=== PATIENT | female | born 1990 | race Caucasian/White ===

== ENCOUNTER 2018-07-02 22:31 | Emergency (ER) | payer SELFPAY ==
[2018-07-03] MEDS ORDERED: Fluorescein Sodium TOPICAL* 1 MG TEST STRIP OPHTHALMIC ONE (01:13)
[2018-07-03] MEDS ORDERED: Proparacaine 0.5% OPHTH.SOL* 15 ML BTL LEFT EYE ONE (01:13)
--- NOTE | 2018-07-03 01:55 | RAD ---
EXAM: CT Maxillofacial Without Intravenous Contrast EXAM DATE/TIME: 07/03/2018 1:25 AM CLINICAL HISTORY: 28 years old, female; Injury or trauma; Injury history: Blackened left eye approx 1 month or more ago; Late effect from previous injury; Blunt trauma (contusions or hematomas); Orbit/periorbital; Injury date: Unknown TECHNIQUE: Axial computed tomography images of the face without intravenous contrast. All CT scans at this facility use at least one of these dose optimization techniques: automated exposure control; mA and/or kV adjustment per patient size (includes targeted exams where dose is matched to clinical indication); or iterative reconstruction. Coronal and sagittal reformatted images were created and reviewed. COMPARISON: No relevant prior studies available. FINDINGS: Bones/joints: No acute fracture. Soft tissues: No significant facial soft tissue swelling. Orbits: No orbital hemorrhage. Sinuses: Normal. No air-fluid levels. IMPRESSION: No acute fracture. To contact [facility] with a general question: Operations Center - [phone] For direct physician to physician contact: Physician Hotline - [phone] [facility] ([facility] Facility ID #[id number])
--- NOTE | 2018-07-03 01:58 | ED ---
Throat Pain/Nasal Congestion - HPI Summary HPI Summary: Patient with history of "black eye" 3 months ago complains of persistent pain, ecchymosis below left eye with heat and itching in same area starting tonight. Patient states persistent mild ecchymosis, swelling, tenderness since event 3 months ago. Patient seen by primary care last week, recommended that she see a maxillofacial surgeon. Patient states no imaging has been done, no course of antibiotics. Denies any vision change or ocular symptoms, fever, cough, sore throat, CP, CARMICHAEL, CP, SOB, N/V/V abdominal pain, change in urine, change in BM. Medical history is none. - History of Current Complaint Chief Complaint: EDEyeProblem Time Seen by Provider: 07/03/18 01:03 Hx Obtained From: Patient Onset/Duration: Gradual Onset Severity: Moderate Associated Signs And Symptoms: Positive: Negative Cough: None - Allergies/Home Medications Allergies/Adverse Reactions: Allergies Allergy/AdvReac Type Severity Reaction Status Date / Time acetaminophen [From Percocet] Allergy Itching Verified 07/03/18 01:57 MS Acetaminophen Allergy Itching Verified 06/01/15 19:44 [From Percocet] MS Oxycodone [From Percocet] Allergy Itching Verified 06/01/15 19:44 oxycodone [From Percocet] Allergy Itching Verified 07/03/18 01:57 PMH/Surg Hx/FS Hx/Imm Hx Endocrine/Hematology History: Denies: Hx Anticoagulant Therapy Cardiovascular History: Denies: Hx Cardiac Arrest Respiratory History: Reports: Hx Asthma History: Denies: Hx Dialysis Neurological History: Denies: Hx CVA - Surgical History Surgery Procedure, Year, and Place: D&C; wisdom teeth Infectious Disease History: No Infectious Disease History: Reports: Hx Shingles Denies: Hx Clostridium Difficile, Hx Hepatitis, Hx Human Immunodeficiency Virus (HIV), Hx of Known/Suspected MRSA, Hx Tuberculosis, Hx Known/Suspected VRE , Hx Known/Suspected VRSA, History Other Infectious Disease, Traveled Outside the [place] in Last 30 Days - Social History Alcohol Use: Weekly Alcohol Amount: every other day Substance Use Type: Reports: None Smoking Status (MU): Former Smoker Review of Systems Constitutional: Negative Eyes: Negative Positive: Other Cardiovascular: Negative Respiratory: Negative Gastrointestinal: Negative Genitourinary: Negative Musculoskeletal: Negative Skin: Negative Neurological: Negative Psychological: Normal All Other Systems Reviewed And Are Negative: Yes Physical Exam - Summary Physical Exam Summary: Conjunctival abrasion at 5 o'clock position on exam of left eye. Mild ecchymosis, swelling and tenderness below left eye. EOMs intact. Triage Information Reviewed: Yes Vital Signs On Initial Exam: Initial Vitals Temp Pulse Resp BP Pulse Ox 98.3 F 75 16 145/95 100 07/02/18 22:34 07/02/18 22:34 07/02/18 22:34 07/02/18 22:34 07/02/18 22:34 Vital Signs Reviewed: Yes Appearance: Positive: Well-Appearing Skin: Positive: Warm Head/Face: Positive: Normal Head/Face Inspection Eyes: Positive: Normal ENT: Positive: Normal ENT inspection Neck: Positive: Supple Respiratory/Lung Sounds: Positive: Clear to Auscultation Cardiovascular: Positive: Normal Abdomen Description: Positive: Nontender Musculoskeletal: Positive: Normal Neurological: Positive: Normal Psychiatric: Positive: Normal AVPU Assessment: Alert - [employer] Coma Scale Best Eye Response: 4 - Spontaneous Best Motor Response: 6 - Obeys Commands Best Verbal Response: 5 - Oriented Coma Scale Total: 15 Diagnostics - Vital Signs Vital Signs Temp Pulse Resp BP Pulse Ox 07/02/18 22:34 98.3 F 75 16 145/95 100 - Laboratory Lab Statement: Any lab studies that have been ordered have been reviewed, and results considered in the medical decision making process. EENT Course/Dx - Course Course Of Treatment: Patient with history of "black eye" 3 months ago complains of persistent pain, ecchymosis below left eye with heat and itching in same area starting tonight. Patient states persistent mild ecchymosis, swelling, tenderness since event 3 months ago. Patient seen by primary care last week, recommended that she see a maxillofacial surgeon. Patient states no imaging has been done, no course of antibiotics. Denies any vision change or ocular symptoms, fever, cough, sore throat, CP, CARMICHAEL, CP, SOB, N/V/V abdominal pain, change in urine, change in BM. Medical history is none. Conjunctival abrasion at 5 o'clock position on exam of left eye. Mild ecchymosis, swelling and tenderness below left eye. EOMs intact. Vital signs within normal limits. - Diagnoses Provider Diagnoses: Conjunctival abrasion Discharge - Sign-Out/Discharge Documenting (check all that apply): Patient Departure - Discharge Plan Condition: Stable Disposition: HOME Patient Education Materials: Atypical Facial Pain (ED) Referrals: No Primary Care Phys,NOPCP [Primary Care Provider] - Mustapha Fernandez MD [Medical Doctor] - Additional Instructions: 2 antibiotic drops in left eye every 4 hours. Follow-up with ophthalmology Dr Fernandez. Return to the ED for any new or worsening symptoms - Billing Disposition and Condition Condition: STABLE Disposition: Home
[2018-07-03] MEDS ORDERED: Gentamicin 0.3% OPTH.OINT* 3.5 GM TUBE LEFT EYE ONE (02:30)
[2018-07-03] MEDS ORDERED: Ciprofloxacin 0.3% OPTH.SOL* 2.5 ML BTL ONE (03:10)
[2018-07-03 03:34] VITALS: BP 134/85
[2018-07-03] MEDS ORDERED: Ciprofloxacin 0.3% OPTH.SOL* 2.5 ML BTL LEFT EYE SCH (06:00)
== END 2018-07-03 03:25 | disposition home or self-care (01) ==
LOC: ED 22:31
DX: S05.02XA Injury of conjunctiva and corneal abrasion without foreign body, left eye, initial encounter (principal); X58.XXXA Exposure to other specified factors, initial encounter; Y92.9 Unspecified place or not applicable
CPT/HCPCS: 70486; 99282; A9270-GY

== ENCOUNTER 2018-08-01 13:45 | Emergency (ER) | payer SELFPAY ==
--- OUTSIDE RECORDS SUMMARY | 2018-08-01 13:49 | XMS REPORT | Continuity of Care Document ---
:1990 External Reference #:[id number] Author Name Solitario Oakley M.D. Address [address] [place] [address] Care Team Providers Name Role Phone Solitario Oakley M.D. 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 Active Family History Date Family Member(s) Problem(s) Comments Father No Current Problems Mother No Current Problems Grandmother Glaucoma Social History Type Date Description Comments Sex Unknown Marital Status Single Occupation [employer] Use Occasionally consumes alcohol Tobacco Use Start: Unknown End: Patient is a former QUIT 5 YEARS AGO Unknown smoker Recreational Drug Use Denies Drug Use Smoking Status Reviewed: 07/04/18 Patient is a former QUIT 5 YEARS AGO smoker Allergies, Adverse Reactions, Alerts Description No Known Drug Allergies Medications Description No Active Medications Immunizations Description No Information Available Vital Signs Description No Information Available Results Description No Information Available Procedures Description No Information Available Encounters Description No Information Available Plan of Treatment 07/04/2018 - Solitario Oakley M.D.[id number] Other injuries of left eye and orbit , initial encounterComments:Smoking can increase the risk of developing or worsening any eye related disease, as well as affect your overall health. If you are a smoker, we strongly recommend that you quit.If you are not a smoker, we strongly recommend that you do not start. USE THE ANTIBIOTIC EYE DROP UNTIL TUESDAY THEN YOU CAN STOP IT.USE AN ARTIFICIAL TEAR DROP 2X/DAY, EVERY DAY FOR THE NEXT MONTH TO HELP THE CORNEA CONTINUE TO HEAL.I EXPECT YOUR SYMPTOMS TO GRADUALLY IMPROVE. CALL IF YOU THINK THEY WORSEN.Follow up:2 Month Follow Up DFE You can expect to have your eyes dilated at your next visit. If Dr. Oakley orders any additional testing, it may require extra time. We recommend that you bring sunglasses, as dilation drops often make you light sensitive until they wear off. We always recommend you bring someone to drive you home if you are uncomfortable driving with your eyes dilated. If you have any questions before your next visit, feel free to call our office at .
--- NOTE | 2018-08-01 13:52 | UC ---
Respiratory Complaint HPI - HPI Summary HPI Summary: 28 yo female presents with a dry cough for the last 2 weeks. She tells me that she has a hx of asthma, but has not needed any nebulizer treatments or inhalers in a long time and, thus does not have any on hand. She does feel SOB at times when she starts repeatedly coughing. She has been taking robitussin and tylenol with no relief. Denies fever, chills, sore throat, chest pain, abdominal pain, n /v. - History of Current Complaint Stated Complaint: COUGH Time Seen by Provider: 08/01/18 13:49 Hx Obtained From: Patient Hx Last Menstrual Period: 2 weeks ago - has mirena Onset/Duration: Gradual Onset Character: Cough: Nonproductive - Allergies/Home Medications Allergies/Adverse Reactions: Allergies Allergy/AdvReac Type Severity Reaction Status Date / Time acetaminophen [From Percocet] Allergy Itching Verified 08/01/18 13:55 oxycodone [From Percocet] Allergy Itching Verified 08/01/18 13:55 Home Medications: Home Medications Guaifen/Phenyleph/Acetaminophn [Tylenol Cold Head Congest Cplt] 1 tab PO ONCE PRN 08/01/18 [History Confirmed 08/01/18] PMH/Surg Hx/FS Hx/Imm Hx - Additional Past Medical History Additional PMH: None Respiratory History: Asthma Other History Of: Negative For: Anticoagulant Therapy - Surgical History Surgical History: Yes Surgery Procedure, Year, and Place: D&C; wisdom teeth - Family History Known Family History: Positive: None - Social History Occupation: Employed Full-time Lives: With Family Alcohol Use: Weekly Alcohol Amount: every other day Substance Use Type: None Smoking Status (MU): Former Smoker Review of Systems All Other Systems Reviewed And Are Negative: Yes Constitutional: Positive: Negative Skin: Positive: Negative Eyes: Positive: Negative ENT: Positive: Negative Respiratory: Positive: Cough Cardiovascular: Positive: Negative Gastrointestinal: Positive: Negative Neurological: Positive: Negative Psychological: Positive: Negative Physical Exam - Summary Physical Exam Summary: GENERAL: NAD. WDWN. No pain distress. SKIN: No rashes, sores, lesions, or open wounds. HEENT: Head: AT/NC Eyes: EOM intact. Conjunctiva clear without inflammation or discharge. Ears: Hearing grossly normal. TMs intact, no bulging, erythema, or edema. Nose: Nasal mucosa pink and moist. NTTP maxillary and frontal sinus. Throat: Posterior oropharynx without exudates, erythema, or tonsillar enlargement. Uvula midline. NECK: Supple. Nontender. No lymphadenopathy. CHEST: CTAB. No r/r/w. No accessory muscle use. Breathing comfortably and in no distress. CV: RRR. Without m/r/g. Pulses intact. Cap refill <2seconds NEURO: Alert. PSYCH: Age appropriate behavior. Triage Information Reviewed: Yes Vital Signs: Vital Signs: Temp Pulse Resp BP Pulse Ox 98.6 F 77 18 129/80 100 08/01/18 13:49 08/01/18 13:49 08/01/18 13:49 08/01/18 13:49 08/01/18 13:49 Vital Signs Reviewed: Yes Respiratory Course/Dx - Course Course Of Treatment: Duoneb: Improved with easier work of breathing. CXR: IMPRESSION: NO EVIDENCE FOR ACTIVE CARDIOPULMONARY DISEASE. Suspect bronchitis and will rx for tessalon, cough medicine at bedtime, and prednisone. F/u if symptoms do not improve. - Differential Dx/Diagnosis Provider Diagnosis: Bronchitis Discharge - Sign-Out/Discharge Documenting (check all that apply): Patient Departure All imaging exams completed and their final reports reviewed: Yes - Discharge Plan Condition: Stable Disposition: HOME Prescriptions: Benzonatate CAP* [Tessalon 100 MG CAP*] 100 mg PO TID PRN #21 cap PRN Reason: Cough Codeine Phosphate/Guaifenesin [Guaifen-Codeine 100-10 mg/5 ml] 5 ml PO BEDTIME PRN #35 ml MDD 5mL PRN Reason: Cough predniSONE TAB* [Deltasone 20 MG TAB*] 40 mg PO DAILY #10 tab Patient Education Materials: Acute Bronchitis (ED) Referrals: No Primary Care Phys,NOPCP [Primary Care Provider] - Additional Instructions: If you develop a fever, shortness of breath, chest pain, new or worsening symptoms - please call your PCP or go to the ED. - Billing Disposition and Condition Condition: STABLE Disposition: Home
[2018-08-01 13:55] VITALS: BP 129/80
[2018-08-01] MEDS ORDERED: Albuterol/Ipratropium NEB.SOL* Albuterol 2.5 MG/Ipratropium 0.5 MG 3 ML INH ONE (14:01)
== END 2018-08-01 15:07 | disposition home or self-care (01) ==
LOC: UCEAST 13:45
DX: J45.909 Unspecified asthma, uncomplicated (principal); Z88.6 Allergy status to analgesic agent; Z88.5 Allergy status to narcotic agent; Z87.891 Personal history of nicotine dependence
CPT/HCPCS: 71046; 99212; A9270-GY; G0463